=== PATIENT | female | born 1940 | race Caucasian/White ===

== ENCOUNTER 2024-12-03 07:51 | Outpatient (CLI) | payer MEDICARE, SELFPAY ==
--- NOTE | 2024-12-03 09:30 | ECG_ITS ---
Test Date: 2024-12-03 09:55:13 Measurements Intervals [place] Rate: 69 P: 60 ND: 160 QRS: -16 QRSD: 96 T: 88 QT: 367 QTc: 394 Interpretive Statements SINUS RHYTHM NONSPECIFIC ST & T-WAVE ABNORMALITY No previous ECG available for comparison Electronically Signed On 12-03-2024 15:24:44 REMOTE RECRUITER by Munir Erwin M.D.
[2024-12-03 10:43] LABS: Basophils Absolute Auto 0.1 K/mm3 (0.0-0.1); Basophils Percent Auto 1.3 % (0.2-1.2); Eosinophils Absolute Auto 0.6 K/mm3 (0-0.3); Eosinophils Percent Auto 6.3 % (0-4.4); Hematocrit 42.8 % (37.0-47.0); Hemoglobin 14.7 g/dL (12.0-15.0); Immature Granulocyte Absolute 0.02 K/mm3 (0.00-0.031); Immature Granulocyte Percent A 0.2 % (0-0.5); Lymphocytes Absolute Auto 2.74 K/mm3 (0.9-3.2); Lymphocytes Percent Auto 31.4 % (18.3-44.2); Mean Corpuscular HGB Conc 34.3 g/dl (32-36); Mean Corpuscular Hemoglobin 29.3 pg (26-34); Mean Corpuscular Volume 85.3 fl (80-100); Mean Platelet Volume 9.2 fl (7.4-10.4); Monocytes Absolute Auto 0.6 K/mm3 (0.1-0.6); Monocytes Percent Auto 7.2 % (2.6-8.5); Neutrophils Absolute Auto 4.7 K/mm3 (1.3-6.7); Neutrophils Percent Auto 53.6 % (45.5-73.1); Platelet Count Result 273 k/mm3 (150-375); Red Blood Count 5.02 M/mm3 (4.2-5.4); Red Cell Distribution Width 12.4 % (11.5-14.5); White Blood Count 8.7 K/mm3 (4.5-10.0)
[2024-12-03 11:03] LABS: Albumin Level 4.4 g/dL (3.5-5.1); Estimated Glomerular Filt Rate > 60; Glucose 136 mg/dL (65-110)
[2024-12-03 11:56] LABS: MRSA (PCR) NOT DETECTED (NOT DETECTE)
[2024-12-03 12:45] LABS: Urine Cotinine NEGATIVE
[2024-12-03 18:55] LABS: Hemoglobin A1C 6.7 % (<5.7)
== END 2024-12-03 07:52 | disposition home or self-care (01) ==
PROVIDERS: PCP Family Medicine; Visit Provider Orthopaedic Surgery
DX: Z01.818 Encounter for other preprocedural examination (principal); M16.11 Unilateral primary osteoarthritis, right hip
CPT/HCPCS: 80307; 82040; 82565; 82947; 83036; 85025; 87641; 93005

== ENCOUNTER 2024-12-26 00:16 | Day surgery (SDC) | payer MEDICARE, SELFPAY ==
[2024-12-03 08:19] VITALS: BP 152/61; PULSE 70; RESP 16; TEMP 36.7; O2SAT 99; BMI 30.1
--- NOTE | 2024-12-03 08:41 | PC.NURSE ---
Addendum entered by Sandra Capone RN 12/03/24 09:10: HOLD ALL VITAMINS/SUPPLEMENTS 3 DAYS PRE-OP PER ANESTHESIA- LAST DOSE 12/22/24. Original Note: Report to the Outpatient Waiting Room, entrance under the green pavilion located off [facility], at time __8:30AM on date ___12/26/24____. Planned Procedure Time: ___10:30AM .? Time changes happen often and if your time is changed the preop area will call you the afternoon before. - You and your visitor will be asked to self-screen and do not enter if you have any COVID symptoms. Please call surgeon if you need to reschedule. - A mask is optional within the hospital at this time. Patients may have clear liquids (water, carbonated beverages, clear teas, apple juice) until 3 hours prior to surgery with a maximum of 20 ounces. - No food from midnight until time of surgery and no smoking. This includes no chewing gum, candy or mints. Take only the following medications with a SIP of water on the morning of surgery: ____NONE DO NOT STOP ANY OF YOUR OTHER PRESCRIPTION MEDICATIONS PRIOR TO SURGERY EXCEPT THE FOLLOWING Medications to discontinue per physician HOLD NAPROXEN (ALL NSAIDS) 7 DAYS PRE-OP PER DR HAHN Date to take last dose____12/18/24 Please no make-up, nail kazakh, hairspray, perfume, deodorant, or body powder the day of surgery.? No jewelry (including any body piercings) or valuables the day of surgery, leave them at home.? Please take a shower or bath the night before, or the morning of, surgery with an antibacterial soap.? Wear comfortable, loose fitting clothing.? Children are encouraged to wear pajamas. - Jewelry must be removed prior to entering the operating room.? Rings and piercings that are not removed may be cut off. - The hospital will not accept responsibility for valuables.? - Please leave all valuables, including medications, at home the day of surgery. If you are going home after surgery, a licensed school bus driver/teacher assistant must drive you home.? - NO public transportation without another adult if you receive anesthesia. - We recommend that an adult stay with you for 24 hours following discharge. - We also recommend that you do not drive, make important decision, drink alcoholic beverages, or take any drugs that were not prescribed by your health care provider for at least 24 hours after your discharge time. Follow any additional instructions given to you from your surgeon. Telephone instructions given to ____PATIENT & DAUGHTER and asked if any additional questions and then verbalized understanding. Patient advised to call surgeon office or pre surgery nurse liaison [phone] if any additional questions.
[2024-12-26] VITALS (14 sets, daily range): BP systolic 132–195; BP diastolic 66–94; PULSE 75–108; RESP 14–18; TEMP 36.2–37.6; O2SAT 93–100
--- NOTE | ~2024-12-26 | XR_ITS ---
EXAMINATION: XR hip RT min 2V DATE: 12/26/2024 12:49 INDICATION: Postoperative evaluation following right total hip arthroplasty TECHNIQUE: Anteroposterior and lateral views of the right hip were obtained. COMPARISON: 12/23/2024 FINDINGS: Interval placement of a noncemented right total hip arthroplasty which appears well seated in near an atomic alignment. Expected soft tissue gas in the postoperative bed. No fractures identified. IMPRESSION: 1. Right total hip arthroplasty, negative for postoperative purposes. Reviewed, dictated and finalized at location A. ILE DYER
--- OUTSIDE RECORDS SUMMARY | 2024-12-26 00:18 | XMS_ITS | Referral Summary ---
Author Organization [facility] Address [address] [place] [address] Care Team Providers Care Fertilizer Supervisor Name Role Phone Unknown, Notinfile Primary Care Provider Unavail able Encounters Date Type Department Care Team Description 12/24/2024 Telephone [facility] at [place] [address] [facility] [address] [place] [address] Unknown, Notinfile from Last 3 Months Allergies No known active allergies Medications loperamide (IMODIUM A-D) 2 mg tablet Take 2 tablets (4 mg total) by mouth daily Active Lactobacillus acidophilus 10 billion cell capsule Take 1 capsule by mouth daily Active cannabidiol, CBD, (EPIDIOLEX) 100 mg/mL solution Take by mouth 2 (two) times a day Active Active Problems Problem Noted Date Diagnosed Date Chronic diarrhea 04/26/2023 Elevated glucose 04/25/2022 Assessment & Plan (04/25/2022 9:55 AM CDT): Asymptomatic, fasting glucose ordered. Mammogram declined 04/16/2020 Post-menopausal 04/16/2020 Colonoscopy refused 07/30/2018 Resolved Problems Problem Noted Date Diagnosed Date Resolved Date Diarrhea 07/30/2018 04/26/2023 Assessment & Plan (04/25/2022 9:55 AM CDT): Clinically improved with probiotics and Imodium AD. Continue current for [id number] medications. Assessment & Plan (07/30/2018 10:08 AM CDT): Declines referral for colonoscopy or Cologuard. Labs ordered, will follow. High- fiber diet recommended. Will follow. Immunizations Name Administration Dates Next Due Influenza, Quadrivalent, Hig h Dose, Preservative Free, Intrr 09/09/2022,09/14/2021 Influenza, Quadrivalent, Spl it, Preservative Free, Intramuscular 08/23/2016 Influenza, Trivalent, High D ose, Split, Preservative Free, Intramuscular 09/18/2020,08/26/2019,09/11/2018,08/29,09/01/2015 Influenza, Unspecified 08/20/2020,2018,08/19/2018,10/09 Moderna SARS-CoV-2 Monovalen t Vaccination (12+ YRS) 12/30/2020,12/02/2020 Pneumococcal Conjugate PCV 13 09/01/2015, 013 Pneumococcal Polysaccharide PPV23 10/09/2018,02/2011 Tdap 10/09/2018,09/11/2018,05/31/2017 ZOSTER LIVE 04/11/2013 ZOSTER Recombinant 02/06/2019,12/04/2018 Social History Tobacco Use Types Packs/Day Years Used Date Smoking Tobacco: Former Smokeless Tobacco: Never Alcohol Use Standard Drinks/Week Comments Yes 1 (1 standard drink = 0.6 oz pur e alcohol) PHQ-2 Answer Date Recorded PHQ-2 Total Score (If total score is 3 or more points, staff should administer the PHQ-9) 0 04/26/2023 Personal Safety Answer Date Recorded Getting School Help Needed Not on file 11/18 Comments No Sex and Gender Information Value Date Recorded Sex Assigned at Not on file 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 Gender Identity Not on file Sexual Orientation Not on file Last Filed Vital Signs Vital Sign Reading Time Taken Comments Blood Pressure 150/96 04/26/2023 9:36 AM CDT Pulse 72 04/26/2023 9:36 AM CDT Temperature 36.7 C (98 F) 04/26/2023 9:36 AM CDT Respiratory Rate 18 04/26/2023 9:36 AM CDT Oxygen Saturation 97% 04/26/2023 9:36 AM CDT Inhaled Oxygen Concentration - - Weight 63.6 kg (140 lb 3.2 oz) 04/26/2023 9:36 A M CDT Height 148.6 cm (4' 10.5 ) 04/26/2023 9:36 AM CD T Body Mass Index 28.8 04/26/2023 9:36 AM CDT Plan of Treatment Not on file Procedures Procedure Name Priority Date/Time Associated Diagnosis Comments DEXA AXIAL SKELETON BONE DENSITY 1 OR MORE SITES Schedule Routine, Read Routine (OP Routine) 05/06/2021 10:16 AM CDT Other osteoporosis without current pathological fracture from Last 3 Months or Most Recently Relevant to Health Maintenance Results * Dexa Axial Skeleton Bone Density 1 or 2 Site (05/06/2021 10:16 AM CDT) Anatomical Region Laterality Modality Body N/A Other 05/07/2021 8:24 AM CDT Narrative 05/07/2021 8:26 AM CDT EXAM DESCRIPTION: DEXA AXIAL SKELETON BONE DENSITY 1 OR MORE SITES REASON FOR STUDY: 80 y/o year old F with given history of screening. Special Procedure Tech/Model: [employer] SL ([id number]/N [id number]) CLINICAL INFORMATION: Current height: 60 inches Maximum height: 60 inches Weight: 140 pounds Risk factors: Parental history of hip fracture. COMPARISON: None available. FINDINGS: AP LUMBAR SPINE L1-L4: Total BMD is 0.990 g/cm2 T-score is -0.5 LEFT HIP: Total BMD is 0.801 g/cm2 T-score is -1.2 Femoral neck BMD is 0.623 g/cm2 T-score is -2.0 IMPRESSION: 1. AP lumbar spine bone mineral density in the range of normal. 2. Left hip bone mineral density in the range of low bone mass. 3. Left femoral neck bone mineral density in the range of low bone mass. 4. FRAX 10 year major osteoporotic fracture risk is reported as 29% with 10 year hip fracture Risk 18%. REFERENCE: Bone mineral density: Normal (T-score above or = -1.0) Low bone mass (T-score between -1.0 and -2.5) replaces the previously used term osteopenia Osteoporosis (T-score = or below -2.5) Medical evaluation for secondary causes of low bone mineral density may be appropriate. FRAX is a World Health Organization validated fracture risk assessment tool that calculates a person's 10 year probability of a major osteoporosis related fracture and hip fracture. According to the National Osteoporosis Foundation guidelines, postmenopausal women and men age 50 or older with low bone mass and a 10 year probability of a major osteoporosis related fracture = or greater than 20% or a 10 year probability of a hip fracture = or greater than 3% should be considered for treatment. For further information, including treatment recommendations, please refer to the 2013 ISCD Official Positions (http://www.iscd.org) and the NOF's Clinician's Guide to Prevention and Treatment of Osteoporosis (http://www.nof.org/professionals/clinical-guidelines) THIS IS AN ELECTRONICALLY VERIFIED FINAL REPORT 05/07/2021 8:26 AM - Electronically signed by Jose Ahumada M.D. CH: Report ID: [id number] Reading Location: [id number] Procedure Note Jose Ahumada Jr., MD - 05/07/2021 EXAM DESCRIPTION: DEXA AXIAL SKELETON BONE DENSITY 1 OR MORE SITES REASON FOR STUDY: 80 y/o year old F with given history ofscreening. Special Procedure Tech/Model: [employer] Discovery SL ([id number]/N [id number]) CLINICAL INFORMATION: Current height: 60 inches Maximum height: 60 inches Weight: 140 pounds Risk factors: Parental history of hip fracture. COMPARISON: None available. FINDINGS: AP LUMBAR SPINE L1-L4: Total BMD is 0.990 g/cm2 T-score is -0.5 LEFT HIP: Total BMD is 0.801 g/cm2 T-score is -1.2 Femoral neck BMD is 0.623 g/cm2 T-score is -2.0 IMPRESSION: 1. AP lumbar spine bone mineral density in the range of normal. 2. Left hip bone mineral density in the range of low bone mass. 3. Left femoral neck bone mineral density in the range of low bone mass. 4. FRAX 10 year major osteoporotic fracture risk is reported as 29% with10 year hip fracture Risk 18%. REFERENCE: Bone mineral density: Normal (T-score above or = -1.0) Low bone mass (T-score between -1.0 and -2.5) replaces thepreviously used term osteopenia Osteoporosis (T-score = or below -2.5) Medical evaluation for secondary causes of low bone mineral density may be appropriate. FRAX is a World Health Organization validated fracture risk assessmenttool that calculates a person's 10 year probability of a major osteoporosisrelated fracture and hip fracture. According to the National OsteoporosisFoundation guidelines, postmenopausal women and men age 50 or older with low bonemass and a 10 year probability of a major osteoporosis related fracture = or greater than 20% or a 10 year probability of a hip fracture = or greaterthan 3% should be considered for treatment. For further information, including treatment recommendations, please referto the 2013 ISCD Official Positions (http://www.iscd.org) and the NOF's Clinician's Guide to Prevention and Treatment of Osteoporosis (http://www.nof.org/professionals/clinical-guidelines) THIS IS AN ELECTRONICALLY VERIFIED FINAL REPORT 05/07/2021 8:26 AM - Electronically signed by Jose Ahumada M.D. CH: BRIGHT Report ID: [id number] Reading Location: [place] [address] Neelima Davies STERILE PROCESS COORDINATOR IMG DXA PROCEDURES Final Result from Last 3 Months or Most Recently Relevant to Health Maintenance Insurance [facility] MEDICARE SUPPLEMENT INSURANCE MEDICARE MEDICARE [facility] MEDICARE SUPPLEMENT INSURANCE Care Teams Fertilizer Supervisor Relationship Specialty Start Date End Date Unknown, Notinfile PCP - General 09/19/24
--- OUTSIDE RECORDS SUMMARY | 2024-12-26 00:18 | XMS_ITS | Clinical Summary ---
Author Organization [facility] Address [address] [place] [address] Phone Care Team Providers Care Garden Worker Name Role Phone ALEC MORA DO Primary Care Provider Reason for Visit and Chief Complaint CHART UPDATE Plan of Treatment No Plan of Treatment Recorded Assessments Includes: Assessments from this encounter No Assessments Recorded Medical Equipment - Implanted Devices Includes: Current Devices No Medical Equipment Recorded Medications Includes: Medications discussed during this encounter and other current Medications Current Medications (continue as prescribed) Oyraxzqp-Tibpyvlmi-HV 3.5-10 000-1 Otic Solution 04/23/2024 Provider: GUEVARA Pichardo NP-C Diagnosis: as directed 4 drops in affected ear TID Last Documented On 4 5:41PM By Guevara CLOUD-C ; [facility] Medications Administered Includes: Administered Medications from this encounter No Administered Medications Recorded Results Includes: Results discussed during this encounter No Results Recorded For Specified Dates History of Present Illness Includes: History of Present Illness from this encounter No History of Present Illness Recorded Social History No Social History Recorded - Smoking Status Unknown Medical History Includes: Medical History addressed during this encounter No Medical History Recorded Family History Includes: Family History addressed during this encounter No Family History Recorded Review of Systems Includes: Review of Systems from this encounter No Review of Systems Recorded Mental Status Includes: Mental Status from this encounter No Mental Status Recorded Functional Status Includes: Functional Status from this encounter No Functional Status Recorded Physical Exam Includes: Physical Exam from this encounter No Physical Exam Recorded Immunizations Includes: Immunizations addressed during this encounter Vaccine Dose # Date Site Reaction(s) Status Source Tdap (Boostrix) 1 05/31/2017 Left Arm Complete (Re ported) Patient Last Documented On 7 9:16AM ; [facility] Allergies Includes: Active Allergies No Known Allergies Encounters Encounter Provider Location Date Check-In Time Check-Out Time Diagnosis CHART UPDATE KWASI Dudley RICHARD LOMAS 06/01/2017 9:15AM 11:59PM Insurance Includes: Active Insurance Policies Plan Name Member ID Group # Subscriber Relationship Effect bharath Dates 1 - MEDICARE PART A CLAIMS/NGS [id number] KAYCEE A COPE Self 2 - [employer] MEDICARE SUPPLEMENT INS [id number] KAYCEE A COPE Self Clinical Notes Includes: Clinical Notes from this encounter No Clinical Notes Recorded
--- OUTSIDE RECORDS SUMMARY | 2024-12-26 00:18 | XMS_ITS ---
Author Organization [facility] Address [address] [place] [address] Phone Care Team Providers Care Building Services Supervisor Name Role Phone ALEC MORA DO Primary Care Provider Plan of Treatment Findings Encounter Date Ordered return to the clinic if condition worsens or new symptoms arise WALK IN PATIENT - NEW PT with GUEVARA KHAN DNP 04/23/2024 Last Documented On 4 3:35PM ; [facility] Go to the emergency room if condition worsens WALK-IN CLINIC SICK VISIT with HAIM HAGEN [facility]- 03/18/2019 Last Documented On 9 9:31AM ; [facility] Ordered analgesics (non-ster oidal anti-inflammatory agents) WALK-IN CLINIC SICK VISIT with HAIM HAGEN [facility]- 03/18/2019 Last Documented On 9 9:31AM ; [facility] Ordered follow-up visit in 1 day with an office visit with Dr. Miller WALK-IN CLINIC SICK VISIT with HAIM HAGEN [facility]- 03/18/2019 Last Documented On 9 9:31AM ; [facility] Ordered home range of motion exercises W ALK-IN CLINIC SICK VISIT with HAIM BAHENAP- 03/18/2019 Last Documented On 9 9:31AM ; [facility] Ordered moist heat alternating ice WALK- IN CLINIC SICK VISIT with HAIM HAGEN [facility]- 03/18/2019 Last Documented On 9 9:31AM ; [facility] Ordered referred to primary care physician WALK-IN CLINIC SICK VISIT with HAIM HAGEN [facility] 03/18/2019 Last Documented On 9 9:31AM ; [facility] Ordered return to the clinic if condition worsens or new symptoms arise WALK-IN CLINIC SICK VISIT with HAIM HAGEN [facility] 03/18/2019 Last Documented On 9 9:31AM ; [facility] Ordered Transition in care, clinical summary provided WALK-IN CLINIC SICK VISIT with HAIM HAGEN [facility] 03/18/2019 Last Documented On 9 9:31AM ; [facility] Pt to use prescription as or dered. Purpose of and use of medication discussed. WALK-IN CLINIC SICK VISIT with EVA Laith FERRERA [facility] 08/18/2018 Last Documented On 8 12:00PM ; [facility] exercises as demonstrated, t ylenol or ibuprofen, ice, steroid injection today PROBLEM VISIT with KWASI RAMOS 09/02/2013 Last Documented On 3 7:47PM ; [facility] Ordered patient to call if ruddy michaels develops PROBLEM VISIT with KWASI RAMOS 09/02/2013 Last Documented On 3 7:47PM ; [facility] Ordered return to the clinic if condition worsens or new symptoms arise PROBLEM VISIT with KWASI RAMOS DO 09/02/2013 Last Documented On 3 7:47PM ; [facility] Instructions to patient Go to the emergency room if condition worsens Last Documented On 9 9:30AM ; [facility] Watch for signs/symptoms of infection, return to the clinic if seen Last Documented On 9 9:30AM ; [facility] Go to the emergency room if condition worsens Last Documented On 3 10:53AM ; [facility] Assessments Includes: Assessments for all patient encounters Findings Encounter Date Cerumen impaction in the right ear WALK IN PATIENT - NEW PT with GUEVARA KHAN DNP 04/23/2024 Last Documented On 4 3:35PM ; [facility] Otitis externa WALK IN PATIENT - NEW PT with KARYN KHAN DNP 04/23/2024 Last Documented On 4 3:35PM ; [facility] Acute pansinusitis WALK-IN CLINIC SICK VISIT with EVA CLOUD-ANJELICA 08/18/2018 Last Documented On 8 12:00PM ; [facility] Arthralgia PROBLEM VISIT with KWASI HYMAN FF DO 09/02/2013 Last Documented On 3 7:47PM ; [facility] Skin Tag OFFICE SURGERY with KWASI LESTERBRIGHT EFF DO 06/12/2009 Last Documented On 9 11:30AM ; [facility] Instructions Includes: Instructions for all patient encounters Instructions to patient Go to the emergency room if condition worsens Last Documented On 9 9:30AM ; [facility] Watch for signs/symptoms of infection, return to the clinic if seen Last Documented On 9 9:30AM ; [facility] Go to the emergency room if condition worsens Last Documented On 3 10:53AM ; [facility] Medical Equipment - Implanted Devices Includes: Current and historical Devices No Medical Equipment Recorded Medications Includes: Current and historical Medications Current Medications (continue as prescribed) Uhkugxzf-Ohypwqjjg-OJ 3.5-10 000-1 Otic Solution 04/23/2024 Provider: GUEVARA Pichardo RAM PRESS OPERATOR-C Diagnosis: as directed 4 drops in affected ear TID Last Documented On 4 5:41PM By Guevara MANN ; [facility] Past Medications on file Ciprofloxacin-dexAMETHasone 0.3-0.1% Otic Suspension 04/23/2024 - 04/30/2024 Provider: GUEVARA KHAN DNP Diagnosis: Unspecified otit is externa, right ear Apply 5 drops to the right ear BID for 7 days Last Documented On 4 3:03PM By Guevara Khan DNP ; [facility] Cephalexin 500MG Oral Capsule 08/18/2018 - 08/28/2018 Provider: EVA CLOUD-ANJELICA Diagnosis: Acute pansinusit is, unspecified 1 CAPSULE TWO TIMES A DAY Last Documented On 8 11:51AM By EVA FERRERA CHEMISTS-BC ; [facility] Medications Administered Includes: Administered Medications in patient's chart Medications Administered Diagnosis Date Pro vider influenza vaccine IM INJ 08/23/2016 ZAYRA N L PALCHEFF DO Last Documented On 6 3:52PM By BOGDAN ZIMMERMAN [facility] ; [facility] Vital Signs Includes: Vital Signs from 12/26/2023 through 12/26/2024 Vital Name 04/23/2024 02:08P Pulse Rate-Sitting (bpm) 86 Temp-Oral (F) 98.1 Height (in) 58.25 Weight (lb) 141 Body Mass Index 29.2 Body Surface Area 1.6 Oxygen Saturation (%) 98 Last Documented: On 04/23/2024 2:08PM ; [facility] Results Includes: Results from 12/26/2023 through 12/26/2024 No Results Recorded For Specified Dates History of Present Illness History of Present Illness not supported for this document type No History of Present Illness Recorded Social History Description Last Updated Former smoker 04/23/2024 Last Documented On 4 3:35PM ; [facility] Not a current smoker 08/18/2018 Last Documented On 8 12:00PM ; [facility] Not using alcohol 08/18/2018 Last Documented On 8 12:00PM ; [facility] Not using drugs 08/18/2018 Last Documented On 8 12:00PM ; [facility] Smoking status : Never smoked 09/02/2013 Last Documented On 3 7:47PM ; [facility] Procedures and Surgical History Includes: Procedures from 12/26/2023 through 12/26/2024 Procedures Code Diagnosis Performing Provider Service Location Service Date REMOVE IMPACTED EAR CERUM 56424 Impacted cerumen, right ear GUEVARA KHAN DNP [facility] 04/23/2024 Last Documented On 4 9:59AM ; [facility] Surgical History Last Updated Surgical / procedural history bilat cat aract surgery 08/18/2018 Last Documented On 8 12:00PM ; [facility] Medical History Includes: Medical History in patient's chart Description Last Updated Denial of any significant medical histor y 08/18/2018 Last Documented On 8 12:00PM ; [facility] Family History Includes: Family History in patient's chart Description Last Updated Family medical history was unknown 08/18 Last Documented On 8 12:00PM ; [facility] Review of Systems Review of Systems not supported for this document type No Review of Systems Recorded Mental Status No Mental Status Recorded Functional Status No Functional Status Recorded Physical Exam Physical Exam not supported for this document type No Physical Exam Recorded Immunizations Includes: Immunizations in patient's chart Vaccine Dose # Date Site Reaction(s) Status Source Influenza (Quadrivalent)36 mo.& older PF 0.5ml (SD) 1 08/23/2016 Complete (Reported) Patient Last Documented On 6 3:51PM ; [facility] Tdap (Boostrix) 1 05/31/2017 Left Arm Complete (Re ported) Patient Last Documented On 7 9:16AM ; [facility] Allergies Includes: Active, inactive, and resolved Allergies No Known Allergies Encounters Includes: Encounters from 12/26/2023 through 12/26/2024 Encounter Provider Location Date Check-In Time Check-Out Time Diagnosis * PHONE CALL GUEVARA MANN 04/23/20 24 5:29PM 11:59PM WALK IN PATIENT - NEW PT GUEVARA KHAN DNP [facility] 04/23/20 24 2:02PM 2:52PM Otitis Externa,Cerum en Impaction - Right Ear Insurance Includes: Active Insurance Policies Plan Name Member ID Group # Subscriber Relationship Effect bharath Dates 1 - MEDICARE PART A CLAIMS/NGS [id number] KAYCEE A COPE Self 2 - [employer] MEDICARE SUPPLEMENT INS [id number] KAYCEE A COPE Self Clinical Notes Includes: Signed Clinical Notes starting from 12/09/2022 * Progress note Date Encounter Last Documented by 04/23/2024 * PHONE CALL Last documented on 04/23/2024; 5:29 PM, GUEVARA MANN; [facility] History of Present Illness ciprodex not cover and requesting new med Plan StartCited - Other Djzpwwmo-Dvlrvqzue-TT 3.5-53405-6 mL as directed 4 drops in affected ear TID, 10 days, 0 refills EndCited * Progress note Date Encounter Last Documented by 04/23/2024 WALK IN PATIENT - NEW PT Last do cumented on 04/23/2024; 3:35 PM, GUEVARA KHAN DNP; [facility] Chief Complaint The Chief Complaint is: Pt is here with her right ear clogged up, started a week ago. History of Present Illness KAYCEE SUN is an 83 year old female. - Allergy list reviewed - Medication list reviewed - Feeling tired - No fever - No chills - No sinus pain - No eye symptoms - Hearing loss right ear only - No earache in right ear - Not in left ear - The right ear does not feel pressured - Not on the left - No nasal discharge - No nasal passage blockage (stuffiness) - No sore throat - No chest pain or discomfort - No dyspnea - No cough Kaycee presents to the clinic with right ear hearing loss/feeling clogged up for the past week now. She denies any ear pain, fever, chills, or other associated symptoms. She reports that she took a Qtip with warm water and tried to clean her ear out but was unsuccessful at home. Social History Tobacco use: Former smoker. Review Of Systems Systemic: No fever and no chills. Head: No sinus pain. Eyes: No eye pain. Otolaryngeal: Hearing loss right side only. No earache, no nasal discharge, and no sore throat. Cardiovascular: No chest pain or discomfort. Pulmonary: No dyspnea and no cough. Physical Findings - Vitals taken 04/23/2024 02:08 pm Pulse Rate-Sitting 86 bpm Temp-Oral 98.1 F Height 58.25 in Weight 141 lbs Body Mass Index 29.2 kg/m2 Body Surface Area 1.6 m2 Oxygen Saturation 98 % General Appearance: - Awake. - Alert. - Well nourished. Eyes: General/bilateral: Pupils: - PERRLA. Ears: Right Ear: External Auditory Canal: - Examined. - Ceruminous discharge occluding the canal. - Wall epithelium reddened. - Wall tender. Left Ear: External Auditory Canal: - Normal. Tympanic Membrane: - Normal. - No bulging tympanic membrane. - Not erythematous. Nose: General/bilateral: Discharge: - No nasal discharge. Cavity: - Nasal turbinate not hypertrophied. Sinus Tenderness: - No sinus tenderness. Pharynx: Oropharynx: - Tonsils showed no abnormalities. - Not inflamed. Lungs: - Clear to auscultation. Cardiovascular: Heart Rate And Rhythm: - Normal. Skin: - Mucous membranes were not dry. Assessment - [H61.21 - Impacted cerumen, right ear] Cerumen impaction in the right ear - [H60.91 - Unspecified otitis externa, right ear] Otitis externa Therapy - Clinical summary provided to patient. Plan StartCited - Impacted cerumen, right ear In office procedures/*Family Practice: Cerumen (Ear Wax) Removal EndCited StartCited - Unspecified otitis externa, right ear Ciprofloxacin-dexAMETHasone 0.3-0.1% mL Apply 5 drops to the right ear BID for 7 days, 7 days, 0 refills EndCited - Return to the clinic if condition worsens or new symptoms arise Attempted to irrigate right ear to remove cerumen. Was unable to successfully remove all before patient became intolerant. Use OTC Debrox ear drops- instill 2 drops to each ear 3 times a week for 2 weeks and then get ear reevaluated for wax buildup. Ciprodex drops as directed. 1. Get plenty of rest. 2. May use OTC antihistamine (Zyrtec, Claritin, Benadryl) to help dry up fluid behind the eardrum. 3. Flonase nasal spray may also help to open up nasal passages to help promote better flow of secretions through the sinus cavity. 4. Use a humidifier at night to help prevent nasal congestion. 5. May use OTC Tylenol/ibuprofen for fevers or pain. 6. Patient voiced understanding of teaching. Practice Management Use of tobacco assessment performed Review of medications documented.
--- OUTSIDE RECORDS SUMMARY | 2024-12-26 00:18 | XMS_ITS | Clinical Summary ---
Author Organization [facility] Address [address] [place] [address] Care Team Providers Care Sign Builder Supervisor Name Role Phone Unknown, Notinfile Primary Care Provider Unavail able Allergies No known active allergies Medications loperamide [...] probiotics and Imodium AD. Continue current for qduc-mea-kgnydlu medications. Assessment & Plan (07/30/2018 10:08 AM CDT): Declines referral for colonoscopy or Cologuard. Labs ordered, will follow. High- fiber diet recommended. Will follow. Encounters Date Type Department Care Team Description 12/24/2024 Telephone [facility] [place] [address] [place] [address] Unknown, Notinfile from Last 3 Months Immunizations Name Administration Dates Next Due Influenza, Quadrivalent, Hig h Dose, Preservative Free, Intrr 09/09/2022,09/14/2021 Influenza, Quadrivalent, Spl it, Preservative Free, Intramuscular 08/23/2016 Influenza, Trivalent, High D ose, Split, Preservative Free, Intramuscular 09/18/2020,08/26/2019,09/11/2018,08/29,09/01/2015 Influenza, Unspecified 08/20/2020,2018,08/19/2018,10/09 Moderna SARS-CoV-2 Monovalen t Vaccination (12+ YRS) 12/30/2020,12/02/2020 Pneumococcal Conjugate PCV 13 09/01/2015, 013 Pneumococcal Polysaccharide PPV23 10/09/2018,02/2011 Tdap 10/09/2018,09/11/2018,05/31/2017 ZOSTER LIVE 04/11/2013 ZOSTER Recombinant 02/06/2019,12/04/2018 Medical History Medical History Date Comments Cataract Social History Tobacco Use Types Packs/Day Years [...] on file 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 Gender Identity Not on file Sexual Orientation Not on file Obstetrics History Last Filed Vital Signs Vital Sign Reading [...] 04/26/2023 9:36 AM CDT Plan of Treatment Health Maintenance Due Date Last Done Comments Hepatitis B Screening 1958 Osteoporosis Screening-Bone Density Scan 05/06/2023 05/06/2021 Depression Screening 04/26/2024 04/26/2023, 04/25/2022, 04/23/2021, Additional history exists Fall Risk Assessment 04/26/2024 04/26/2023, 04/25/2022, 04/23/2021, Additional history exists Well Visit 65+ 04/26/2024 04/26/2023, 04/2022, 04/23/2021, Additional history exists Covid-19 Vaccine (2023-2 5 season) 2024 08/09/2022, 04/05/2022, 07/20/2021, Additional history exists Influenza Vaccine (#1) 2024 , 09/14/2021, 09/18/2020, Additional history exists DTaP/Tdap/Td Vaccine (4 - Td or Tdap) 10/09/2028 10/09/2018, 09/11/2018, 05/31/2017 Pneumococcal vaccine 65+ Completed 018, 09/01/2015, 05/09/2013, Additional history exists Zoster Vaccine Completed 02/06/2019, 11/20, 04/11/2013 Procedures Procedure Name Priority Date/Time Associated Diagnosis [...] old F with given history of screening. Conference Director/Model: [employer] Discovery SL (S/N [id number]) CLINICAL INFORMATION: Current height: 60 inches Maximum [...] Electronically signed by Jose Ahumada M.D. CH: CH Report ID: [id number] Reading Location: [id number] Procedure Note Jose Ahumada Jr., MD - 05/07/2021 EXAM DESCRIPTION: DEXA AXIAL SKELETON BONE DENSITY 1 OR MORE SITES REASON FOR STUDY: 80 y/o year old F with given history ofscreening. Conference Director/Model: [employer] (S/N [id number]) CLINICAL INFORMATION: Current height: 60 inches Maximum [...] Jose Ahumada M.D. CH: BRIGHT Report ID: [id number] Reading Location: [place] [id number] Neelima Davies NP IMG DXA PROCEDURES Final Result from Last 3 Months or Most Recently Relevant to Health Maintenance Insurance [facility] MEDICARE SUPPLEMENT INSURANCE [place] [address] [facility] MEDICARE SUPPLEMENT INSURANCE Care Teams Sign Builder Supervisor Relationship Specialty Start Date End Date Unknown, Notinfile PCP - General 09/19/24
--- OUTSIDE RECORDS SUMMARY | 2024-12-26 00:18 | XMS_ITS | Clinical Summary ---
Author Organization [facility] Address [address] [place] [address] Phone Care Team Providers Care Pipe Straightener Name Role Phone ALEC MORA DO Primary Care Provider Reason for Visit and Chief Complaint * PHONE CALL Plan of Treatment No Plan of Treatment Recorded Assessments Includes: Assessments from this encounter No Assessments Recorded Medical Equipment - Implanted Devices Includes: Current Devices No Medical Equipment Recorded Medications Includes: Medications discussed during this encounter and other current Medications New / Renewed during this visit GUEVARA MANN on 04/23/2024 Qbgclbfa-Bwayqjotv-EZ 3.5-10 000-1 Otic Solution Provider: GUEVARA MANN 10 day supply: 1 mL, 0 refills Diagnosis: as directed 4 drops in affected ear TID [facility], [id number] - Last Documented On 4 5:41PM By Guevara MANN ; [facility] Medications Administered Includes: Administered Medications from this encounter No Administered Medications Recorded Results Includes: Results discussed during this encounter No Results Recorded For Specified Dates History of Present Illness Includes: History of Present Illness from this encounter HPI ciprodex not cover and requesting new med Social History No Social History Recorded - [...] from this encounter No Physical Exam Recorded Allergies Includes: Active Allergies No Known Allergies Encounters Encounter Provider Location Date Check-In Time Check-Out Time Diagnosis * PHONE CALL GUEVARA MANN 04/23/2024 5:29PM 11:59PM Insurance Includes: Active Insurance Policies Plan Name Member ID Group # Subscriber Relationship Effect bharath Dates 1 - MEDICARE PART A CLAIMS/NGS [id number] KAYCEE A COPE Self 2 - [employer] MEDICARE SUPPLEMENT INS [id number] KAYCEE A COPE Self Clinical Notes Includes: Clinical Notes from this encounter * Progress note Date Encounter Last Documented by 04/23/2024 * PHONE CALL Last documented on 04/23/2024; 5:29 PM, GUEVARA MANN; [facility] History of Present Illness ciprodex not cover and requesting new med Plan StartCited - Other Bqpmyrhc-Yolgnhemt-YB 3.5-86487-6 mL as directed 4 drops in affected ear TID, 10 days, 0 refills EndCited
--- OUTSIDE RECORDS SUMMARY | 2024-12-26 00:18 | XMS_ITS ---
Care Plan - [facility] Created on: December 26, 2024 KAYCEE SUN : 1940 Sex: Female Author Organization [facility] Address [address] [place] [address] Phone Care Team Providers Care Bowstring Maker Name Role Phone ALEC MORA DO Primary Care Provider
--- OUTSIDE RECORDS SUMMARY | 2024-12-26 00:18 | XMS_ITS | Clinical Summary ---
Author Organization [facility] Address [address] [place] [address] Phone Care Team Providers Care Cylinder Tester Name Role Phone ALEC MORA DO Primary Care Provider Reason for Visit and Chief Complaint The Chief Complaint is: pt is here with her right ear clogged up, started a week ago Plan of Treatment - Return to the clinic if condition worsens or new symptoms arise - Last Documented On 04/23/2024 3:35PM ; [facility] Attempted to irrigate right ear to remove [...] pain. 6. Patient voiced understanding of teaching. - Last Documented On 04/23/2024 3:35PM ; [facility] Pending Tests Order Diagnosis Results Due Ordering Justice manriquez In office procedures - *Family Practice Cerumen (Ear Wax) Removal Impacted cerumen, right ear 05/07/24 GUEVARA KHAN DNP Last Documented On 3:35PM ; [facility] Assessments Includes: Assessments from this encounter Findings - [H61.21 - Impacted cerumen, right ear] Cerumen impaction in the right ear - Last Documented On 04/23/2024 3:35PM ; [facility] - [H60.91 - Unspecified otitis externa, right ear] Otitis externa - Last Documented On 04/23/2024 3:35PM ; [facility] Medical Equipment - Implanted Devices Includes: Current Devices No Medical Equipment Recorded Medications Includes: Medications discussed during this encounter and other current Medications New / Renewed during this visit GUEVARA KHAN DNP on 04/23/2024 Ciprofloxacin-dexAMETHasone 0.3-0.1% Otic Suspension Provider: GUEVARA KHAN DNP 7 day supply: 7.5 mL, 0 refills Diagnosis: Unspecified otitis externa, right ear Apply 5 drops to the right ear BID for 7 days P harmacy: [facility] - [address] [place] [address], [id number] - Last Documented On 4 3:03PM By Guevara Khan DNP ; [facility] Current Medications (continue as prescribed) Jbfjmyta-Plsaxjlvy-XI 3.5-10 000-1 Otic Solution 04/23/2024 Provider: GUEVARA Pichardo MEDICATION COORDINATOR-C Diagnosis: as directed 4 drops in affected ear TID Last Documented On 4 5:41PM By Guevara BAHENAP-C ; [facility] Medications Administered Includes: Administered Medications from this encounter No Administered Medications Recorded Vital Signs Includes: Vital Signs from this encounter Vital Name 04/23/2024 02:08P Pulse Rate-Sitting (bpm) 86 Temp-Oral (F) 98.1 Height (in) 58.25 Weight (lb) 141 Body Mass Index 29.2 Body Surface Area 1.6 Oxygen Saturation (%) 98 Last Documented: On 04/23/2024 2:08PM ; [facility] Results Includes: Results discussed during this encounter No Results Recorded For Specified Dates History of Present Illness Includes: History of Present Illness from this encounter TRCAY SUN is an 83 year old female. [...] but was unsuccessful at home. Social History Description Last Updated Former smoker 04/23/2024 Last Documented On 4 3:35PM ; [facility] Smoking Status Unknown Procedures and Surgical History Includes: Procedures from this encounter Procedures Code Diagnosis Performing Provider Service Location Service Date REMOVE IMPACTED EAR CERUM 78044 Impacted cerumen, right ear GUEVARA KHAN DNP [facility] 04/23/2024 Last Documented On 4 9:59AM ; [facility] use of tobacco assessment performed 1000F Last Documented On 4 2:52PM ; [facility] review of medications documented 1160F Last Documented On 4 2:08PM ; [facility] Clinical summary provided to patient Last Documented On 4 2:52PM ; [facility] Medical History Includes: Medical History addressed during this encounter No Medical History Recorded Family History Includes: Family History addressed during this encounter No Family History Recorded Review of Systems Includes: Review of Systems from this encounter Systemic: No fever and no chills. Head: No sinus pain. Eyes: No eye pain. Otolaryngeal: Hearing loss right side only. No earache, no nasal discharge, and no sore throat. Cardiovascular: No chest pain or discomfort. Pulmonary: No dyspnea and no cough. Mental Status Includes: Mental Status from this encounter No Mental Status Recorded Functional Status Includes: Functional Status from this encounter No Functional Status Recorded Physical Exam Includes: Physical Exam from this encounter Allergies Includes: Active Allergies No Known Allergies Encounters Encounter Provider Location Date Check-In Time Check-Out Time Diagnosis WALK IN PATIENT - NEW PT GUEVARA KHAN DNP [facility] 04/23/20 24 2:02PM 2:52PM Otitis Externa,Cerum en Impaction - Right Ear Insurance Includes: Active Insurance Policies Plan Name Member ID Group # Subscriber Relationship Effect bharath Dates 1 - MEDICARE PART A CLAIMS/NGS [id number] KAYCEE SUN Self 2 - [employer] MEDICARE SUPPLEMENT INS [id number] KAYCEE SUN Self Clinical Notes Includes: Clinical Notes from this encounter * Progress note Date Encounter Last Documented by 04/23/2024 WALK IN PATIENT - NEW PT Last do cumented on 04/23/2024; 3:35 PM, GUEVARA KHAN DNP; [facility] Chief Complaint The Chief Complaint [...]
--- OUTSIDE RECORDS SUMMARY | 2024-12-26 00:18 | XMS_ITS | Clinical Summary ---
Author Organization [facility] Address [address] [place] [address] Phone Care Team Providers Care Cosmetic Maker Name Role Phone ALEC MROA DO Primary Care Provider Reason for Visit and Chief Complaint The Chief Complaint is: cough & congestion one week ago Plan of Treatment Pt to use prescription as ordered. Purpose of and use of medication discussed. . - Last Documented On 08/18/2018 12:00PM ; [facility] Assessments Includes: Assessments from this encounter Findings - Acute pansinusitis - Last Documented On 08/18/2018 12:00PM ; [facility] Medical Equipment - Implanted Devices Includes: Current Devices No Medical Equipment Recorded Medications Includes: Medications discussed during this encounter and other current Medications New / Renewed during this visit EVA CLOUD-ANJELICA on 08/18/2018 Cephalexin 500MG Oral Capsule Provider: EVA PETTIT 10 day supply: 20 capsule, 0 refills Diagnosis: Acute pansinusitis, unspecified 1 CAPSULE TWO TIMES A DAY Pharmacy: [facility] - [address] [place] [address], [id number] - Last Documented On 8 11:51AM By EVA CLOUD-ANJELICA ; [facility] Current Medications (continue as prescribed) Koppospj-Iccysslyz-QN 3.5-10 000-1 Otic Solution 04/23/2024 Provider: GUEVARA Pichardo NP-C Diagnosis: as directed 4 drops in affected ear TID Last Documented On 4 5:41PM By Guevara MANN ; [facility] Past Medications on file Ciprofloxacin-dexAMETHasone 0.3-0.1% Otic Suspension 04/23/2024 - 04/30/2024 Provider: GUEVARA KHAN DNP Diagnosis: Unspecified otit is externa, right ear Apply 5 drops to the right ear BID for 7 days Last Documented On 4 3:03PM By Guevara Khan DNP ; [facility] Medications Administered Includes: Administered Medications from this encounter No Administered Medications Recorded Vital Signs Includes: Vital Signs from this encounter Vital Name 08/18/2018 11:41A Blood Pressure Sitting R 138/66 BP Cuff Size Regular Pulse Rate-Sitting (bpm) 85 Pulse Rhythm Regular Temp-Oral (F) 98.4 Height (in) 60 Weight (lb) 139.2 Body Mass Index (kg/m2) 27.2 Body Surface Area (m2) 1.6 Oxygen Saturation (%) 95 Last Documented: On 08/18/2018 11:43A M ; [facility] Results Includes: Results discussed during this encounter No Results Recorded For Specified Dates History of Present Illness Includes: History of Present Illness from this encounter TRACY SUN is a 77 year old female. - Medication list reviewed. - No vertigo. Symptoms x one week. Has been taking dayquil, nyquil, and sudafed. Has nasal congestion, nasal discharge, post nasal drip. No sore throat. Has cough. No wheezing or SOB. No chest congestion. First few days of symptoms had chills and sweats. Has some intermittent body aches. just feels like she is not getting better. Doesn't feel like symptoms are worsening. Social History Description Last Updated Not a current smoker 08/18/2018 Last Documented On 8 12:00PM ; [facility] Not using alcohol 08/18/2018 Last Documented On 8 12:00PM ; [facility] Not using drugs 08/18/2018 Last Documented On 8 12:00PM ; [facility] Smoking status : Never smoked 09/02/2013 Last Documented On 8 11:41AM ; [facility] Procedures and Surgical History Includes: Procedures from this encounter Procedures Code Diagnosis Performing Provider Service Location Service Date the options include antihistamines as needed per product instructions. Benadryl at night time. Zyrtec (cetirizine), claritin (loratidine) or Veronique (fexofenadine) once daily, in morning Last Documented On 8 11:50AM ; [facility] Pt to use OTC fever/pain product as need ed per product instruction.~ Last Documented On 8 11:50AM ; [facility] plan of care reviewed and agreed to by t he patient Last Documented On 8 11:50AM ; [facility] patient to call if symptoms worsen or not improved in 5-7 days to update patient's status Last Documented On 8 11:50AM ; [facility] patient screened for future fall risk [id number] Last Documented On 8 12:00PM ; [facility] Clinical summary provided to patient Last Documented On 8 11:50AM ; [facility] Surgical History Last Updated Surgical / procedural history bilat edel ract surgery 08/18/2018 Last Documented On 8 12:00PM ; [facility] Medical History Includes: Medical History addressed during this encounter Description Last Updated Denial of any significant medical histor y 08/18/2018 Last Documented On 8 12:00PM ; [facility] Family History Includes: Family History addressed during this encounter Description Last Updated Family medical history was unknown 08/18 Last Documented On 8 12:00PM ; [facility] Review of Systems Includes: Review of Systems from this encounter Systemic: Feeling ill and feeling tired or poorly. No fever. Head: Headache and bilateral maxillary sinus pressure. Neck: No neck symptoms. Eyes: No eye symptoms, no irritation of the eyes, and no discharge from the eyes. Otolaryngeal: Otolaryngeal symptoms. No earache. Nasal discharge, postnasal drip, and nasal passage blockage (stuffiness). No sneezing and no sore throat. Pulmonary: Pulmonary symptoms. No dyspnea and no paroxysmal nocturnal dyspnea. Cough. No wheezing. Gastrointestinal: No gastrointestinal symptoms. Musculoskeletal: Myalgias. Neurological: No dizziness, no recent falls, and no difficulty walking. Skin: No skin lesions. Mental Status Includes: Mental Status from this encounter No Mental Status Recorded Functional Status Includes: Functional Status from this encounter No Functional Status Recorded Physical Exam Includes: Physical Exam from this encounter Allergies Includes: Active Allergies No Known Allergies Encounters Encounter Provider Location Date Check-In Time Check-Out Time Diagnosis WALK-IN CLINIC SICK VISIT EVA FERRERA [facility] 08/18/20 18 11:30AM 12:00PM Acute Pansinusitis Insurance Includes: Active Insurance Policies Plan Name Member ID Group # Subscriber Relationship Effect bharath Dates 1 - MEDICARE PART A CLAIMS/NGS [id number] KAYCEE Ozuna COPE Self 2 - [employer] MEDICARE SUPPLEMENT INS [id number] KAYCEE Ozuna COPE Self Clinical Notes Includes: Clinical Notes from this encounter No Clinical Notes Recorded
--- OUTSIDE RECORDS SUMMARY | 2024-12-26 00:19 | XMS_ITS | Encounter Summary ---
Author Organization [facility] Address [address] [place] [address] Care Team Providers Care Rabbet Operator Name Role Phone Monica Roland DO Primary Care Provider [phone] Unknown, Notinfile Primary Care Provider Unavail able Reason for Visit * Reason Onset Date Comments Scheduling Appointments 05/05/2021 appt rem geno, no answer Encounter Details Date Type Department Care Team (Late st Contact Info) Description 05/05/2021 Telephone [facility] [address] [place] [address] Holly Lang RT Scheduling Appointments (appt reminder, no answer) Social History Tobacco Use Types Packs/Day Years Used Date Smoking Tobacco: Former Smokeless Tobacco: Never Alcohol Use Standard Drinks/Week Comments Yes 1 (1 standard drink = 0.6 oz pur e alcohol) PHQ-2 Answer Date Recorded PHQ-2 Total Score (If total score is 3 or more points, staff should administer the PHQ-9) 0 04/23/2021 Comments Unknown Sex and Gender Information Value Date Recorded Sex Assigned at Not on file Legal Sex Female 1:18 AM [employer] Gender Identity Not on file Sexual Orientation Not on file documented as of this encounter Plan of Treatment Not on file documented as of this encounter Visit Diagnoses Not on filedocumented in this encounter Care Teams Rabbet Operator Relationship Specialty Start Date End Date Monica Roland DO PCP - General 07/30/18 08/28/24 Unknown, Notinfile PCP - General 09/19/24 documented as of this encounter
--- OUTSIDE RECORDS SUMMARY | 2024-12-26 00:19 | XMS_ITS | Clinical Summary ---
Author Organization [facility] Address [address] [place] [address] Phone Care Team Providers Care Blanket Washer Name Role Phone ALEC MORA DO Pablo Primary Care Provider Reason for Visit and Chief Complaint The Chief Complaint is: FELL DOWN 03/18/19 RT LITTLE FINGER HURTS Plan of Treatment - Return to the clinic if condition worsens or new symptoms arise - Last Documented On 03/19/2019 9:31AM ; [facility] - Go to the emergency room if condition worsens - Last Documented On 03/19/2019 9:31AM ; [facility] - Analgesics (non-steroidal anti-inflammatory agents) - Last Documented On 03/19/2019 9:31AM ; [facility] - Moist heat alternating ice - Last Documented On 03/19/2019 9:31AM ; [facility] - Home range of motion exercises - Last Documented On 03/19/2019 9:31AM ; [facility] - Referred to primary care physician - Last Documented On 03/19/2019 9:31AM ; [facility] - Follow-up visit in 1 day with an office visit with Dr. Miller - Last Documented On 03/19/2019 9:31AM ; [facility] - Transition in care, clinical summary provided - Last Documented On 03/19/2019 9:31AM ; [facility] Instructions to patient Go to the emergency room if condition worsens Last Documented On 9 9:30AM ; [facility] Watch for signs/symptoms of infection, return to the clinic if seen Last Documented On 9 9:30AM ; [facility] Assessments Includes: Assessments from this encounter No Assessments Recorded Instructions Includes: Instructions from this encounter Instructions to patient Go to the emergency room if condition worsens Last Documented On 9 9:30AM ; [facility] Watch for signs/symptoms of infection, return to the clinic if seen Last Documented On 9 9:30AM ; [facility] Medical Equipment - Implanted Devices Includes: Current Devices No Medical Equipment Recorded Medications Includes: Medications discussed during this encounter and other current Medications Current Medications (continue as prescribed) Wzhcemiw-Xdayqnfxa-QO 3.5-10 000-1 Otic Solution 04/23/2024 Provider: GUEVARA Pichardo NP-C Diagnosis: as directed 4 drops in affected ear TID Last Documented On 4 5:41PM By Guevara MANN ; [facility] Past Medications on file Ciprofloxacin-dexAMETHasone 0.3-0.1% Otic Suspension 04/23/2024 - 04/30/2024 Provider: GUEVARA KHAN DNP Diagnosis: Unspecified otit is externa, right ear Apply 5 drops to the right ear BID for 7 days Last Documented On 4 3:03PM By Guevara Khan DNP ; [facility] Cephalexin 500MG Oral Capsule 08/18/2018 - 08/28/2018 Provider: EVA PETTIT Diagnosis: Acute pansinusit is, unspecified 1 CAPSULE TWO TIMES A DAY Last Documented On 8 11:51AM By EVA PETTIT ; [facility] Medications Administered Includes: Administered Medications from this encounter No Administered Medications Recorded Vital Signs Includes: Vital Signs from this encounter Vital Name 03/18/2019 12:10P Blood Pressure Sitting R 134/70 BP Cuff Size Regular Pulse Rate-Sitting (bpm) 80 Pulse Rhythm Regular Temp-Oral (F) 98.2 Height (in) 60 Weight (lb) 140 Body Mass Index (kg/m2) 27.3 Body Surface Area (m2) 1.6 Oxygen Saturation (%) 96 Last Documented: On 03/18/2019 12:12P M ; [facility] Results Includes: Results discussed during this encounter No Results Recorded For Specified Dates History of Present Illness Includes: History of Present Illness from this encounter HPI KAYCEE SUN is a 78 year old female. preliminary background HPI [use for free text]. - Medication list reviewed. 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[employer] and she was walking out to her car and she tripped in the parking lot and felt a crunch in her right hand it happened about an hour ago Social History No Social History Recorded - Smoking Status Unknown Procedures and Surgical History Includes: Procedures from this encounter Procedures Code Diagnosis Performing Provider Service L ocation Service Date the options include close observation Last Documented On 9 9:30AM ; [facility] watch for signs/symptoms of infection, r eturn to the clinic if seen Last Documented On 9 9:30AM ; [facility] Clinical summary provided to patient Last Documented On 9 9:25AM ; [facility] Clinical summary transmitted to [facility] provider electronically Last Documented On 9 9:25AM ; [facility] Surgical History Last Updated Surgical / procedural history bilat edel ract surgery 08/18/2018 Last Documented On 9 12:10PM ; [facility] Medical History Includes: Medical History addressed during this encounter Description Last Updated Denial of any significant medical histor y 08/18/2018 Last Documented On 9 12:10PM ; [facility] Family History Includes: Family History addressed during this encounter No Family History Recorded Review of Systems Includes: Review of Systems from this encounter Musculoskeletal: Pain localized to one or more joints. Mental Status Includes: Mental Status from this encounter No Mental Status Recorded Functional Status Includes: Functional Status from this encounter No Functional Status Recorded Physical Exam Includes: Physical Exam from this encounter Allergies Includes: Active Allergies No Known Allergies Encounters Encounter Provider Location Date Check-In Time Check- Out Time Diagnosis WALK-IN CLINIC SICK VISIT [facility] [employer] 9 12:00PM 12:35PM Insurance Includes: Active Insurance Policies Plan Name Member ID Group # Subscriber Relationship Effect bharath Dates 1 - MEDICARE PART A CLAIMS/NGS [id number] KAYCEE A COPE Self 2 - [employer] MEDICARE SUPPLEMENT INS [id number] KAYCEE A COPE Self Clinical Notes Includes: Clinical Notes from this encounter No Clinical Notes Recorded
[2024-12-26] MEDS: ACETAMINOPHEN 500 MG TABLET 1000 MG PO (09:00)
[2024-12-26] MEDS: TRANEXAMIC ACID 1,000MG/ISO100 1,000 MG/100 ML BAG 200 MG IVPB (09:00)
[2024-12-26] MEDS: LACTATED RINGERS 1,000 ML 30 ML IV CONT (09:00)
--- NOTE | 2024-12-26 09:11 | WPDHPUPDATE1 ---
History and Physical Update Update Date/Time: 12/26/24 09:11 History and Physical has been reviewed, including an updated exam of the patient. There are NO changes in the patient's condition. Risks, benefits, and alternatives have been discussed and questions answered. Patient agrees to proceed with procedure.
--- NOTE | 2024-12-26 09:15 | P.PNAN_ITS ---
Anes - Initial Pre Proc Eval Procedure: Operation Date: 12/26/24 10:00 Proposed Procedures p Right Total Hip Arthroplasty - Marko Harrell MD Date/Time: 12/26/24 09:15 Surgeon: Marko Harrell MD Pre Op Diagnosis: primary oa right hip Patient Data Age: 84 Gender: F Height: 1.47 m Weight: 65.4 kg Last Vital Signs Temp 36.7 C 12/03/24 08:19 Pulse 70 12/03/24 08:19 Resp 16 12/03/24 08:19 BP 152/61 H 12/03/24 08:19 Pulse Ox 99 12/03/24 08:19 O2 Del Method Room Air 12/03/24 08:19 Allergies Allergy/AdvReac Type Severity Reaction Status Date / Time No Known Allergies Allergy Verified 12/23/24 11:35 Home Medications ?Medication ?Instructions ?Recorded ?Confirmed ?Type Lactobacillus acidophilus 10 100 mmu cells PO DAILY 12/03/24 12/24/24 History billion cell capsule (Probiotic) cannabidiol 100 mg/mL oral solution 150 mg PO DAILY 12/03/24 12/24/24 History loperamide 2 mg capsule (Imodium 4 mg PO DAILY 12/03/24 12/24/24 History A-D) naproxen 250 mg tablet 250 mg PO DAILY PRN pain 12/03/24 12/24/24 History Patient hx anesthesia problems: none Family hx anesthesia problems: none Results Review: All pre-operative results and documents have been reviewed as part of the pre- operative evaluation. [facility] Surgical History Surgical History History of eye surgery (~02/16/09) Macular hole- Right eye History of eye surgery (~04/03/06) Macular hole- right eye History of right cataract extraction (~07/24/03) History of left cataract extraction (~12/25/08) Social History Social History Smoking packs per day: 1 Smoking cigarettes per day: 20.0 Years smoked: 30 Smoking pack-years: 30.00 Smoking status: Former smoker Tobacco type: cigarettes Smoking end date: 05/20/95 Alcohol intake: current Do You Feel Safe in your Home?: Yes Lack of Transportation: No Lack of Food: Never True Current Housing: I Have Housing Concerned About Future Housing: No Difficulty Paying Gas/Electric Bills: No Difficulty Paying for Meds: No Currently Unemployed: No Education: High School Diploma/GED Difficulty w/ Childcare or Family Care: No Living arrangements: alone Spiritual care concerns: No Anes - Eval Final PreProcedure Day of Procedure 12/26/24 09:15 Patient weight: obese Heart: regular rate and rhythm Lungs: clear to auscultation Airway: Mallampati scale class II Neurological: alert and oriented Last oral intake: >/= 8 hours ASA classification: III Emergent: no Anesthetic plan: proceed Anesthesia type and monitoring: general ETT and standard monitoring Results Review: All pre-operative results and documents have been reviewed as part of the pre- operative evaluation. Informed Consent: The patient's anesthetic plan and its attendant risks and benefits were discussed with the patient/family/POA. Questions were solicited and answers provided to the satisfaction of the patient/family/POA.
[2024-12-26] MEDS: ceFAZolin 2 GM/D5W 50 ML 2 GM/50 ML BAG IVPB ×2 (10:18→18:41)
[2024-12-26] MEDS: SODIUM CHLORIDE 0.9% IV 37.7 ML, MORPHINE SULFATE INJ (*CRX) 2 MG, ROPivacaine HCL 1% 2... INFILTRATE (10:52)
[2024-12-26] MEDS: SODIUM CHLORIDE 0.9% IV 1,000 ML 125 ML IV CONT (13:40)
--- NOTE | 2024-12-26 13:40 | ADMGEN ---
This patient, Anh Kennedy, was admitted to [facility]. Patient/family oriented to hospital policies and general routines including ID bracelet, bed and alarms, visiting hours, pain management, procedures, bathroom and other care routines, personal items, smoking policy, room service/diet, and visiting hours. Information on how to activate the Rapid Response Team has been discussed. Patient/Family are encouraged to report perceived risks to care and to ask questions if they do not understand what they are told or what they should do. Patient is currently in Pre-op Room 11. Patient will be transported to room as soon as availability allows. Family at bedside at this time.
--- NOTE | 2024-12-26 15:06 | W.PM.PROC2 ---
Procedure Note - Detailed Date of Procedure 12/26/24 Pre-op Diagnosis Right hip degenerative arthritis. Post-op Diagnosis Same Procedure Performed Right Total Hip Arthroplasty Surgeon Marko Harrell MD Sales Property Manager Denisse Quijano PA-C Anesthesia General Findings Small stature. Good bone quality. Description of Procedure The patient was given preoperative antibiotics. A general anesthetic was administered. The patient was carefully placed in the lateral decubitus position on the PEG board. The shoulders and hips were carefully positioned for component and leg length positioning reference. The hip was prepped and draped in the usual sterile fashion. A longitudinal incision was created over the posterior aspect of the greater trochanter. Careful dissection was brought down through the deep fascia with electrocautery. A minimally invasive optimized posterior approach to the hip was performed. The short external rotators and capsule were taken down in an L-shaped capsulotomy. The tissue was tagged for later repair using number 2 high strength suture. The femoral neck was measured and taken in situ. The femoral head was removed. The acetabulum was carefully exposed. The inferior capsule was released. The labrum was resected. The acetabulum was sequentially reamed to the intended cup size. The cup was impacted into position with excellent press-fit. Typical anatomic landmarks, including the bony contact points as well as the inferior transverse acetabular ligament were used to confirm cup positioning with preoperative templating. Attention was turned to the femur, which was carefully exposed. The hip was reamed and then broached sequentially. Excellent press-fit was obtained with the broach. The hip was trialed. Measurements were utilized, including the lesser trochanter as well as the center of the femoral head and the tip of the trochanter, and excellent assessment of the offset and leg lengths were confirmed. The real component was impacted into position. Trialing confirmed appropriate leg length and offset with soft tissue balancing as well apparent feel of the leg, both at the knee and the heel. Soft tissues were assessed using the the iliotibial band. Reduction of the posterior capsule and external rotators were also used as a secondary assessment. The hip was copiously irrigated with pulsatile lavage periodically throughout the procedure. The real components were then assembled and reduced. The hip was stable throughout typical maneuvers, including extension, external rotation to 70 degrees, the position of sleep as well as flexion to 90 degrees with internal rotation past 30 degrees. The shake test confirmed stability without impingement. Osteophytes were removed as necessary. The short external rotators and capsule were repaired back to the posterior trochanter through drill holes. The deep fascia was repaired with running number 2 barbed suture, followed by 2-0 Stratafix suture and 3-0 Stratafix suture in the dermis. Steri-Strips were placed on the skin, followed by a sterile occlusive dressing. There were no complications. Meticulous hemostasis was maintained with the AquaMantys device. The patient was brought to the recovery room in stable condition. There were no complications. Physician photo studio assistant, Denisse Quijano PA-C, required for surgery; including patient positioning, draping, tissue retraction, maintaining instrument position, hip dislocation/ relocation, wound closure, and dressing placement. Implants The Accolade II hip stem, 127 degree size 2 , was utilized with excellent press-fit. The 46 mm Trident II acetabular component was impacted with excellent press-fit stability. Standard polyethylene liner the +0, 32 mm Biolox ceramic femoral head was utilized. Estimated Blood Loss 300 Drains No Packing No Pathology None sent Complications No immediate complications Condition Stable Disposition PACU [facility] Billing Surgery - Charge Forward: Surgery Billing
--- NOTE | 2024-12-26 15:50 | PC.NURSE ---
Patient transported to [facility] Room 316-02 by stretcher with family at bedside.
[2024-12-26] MEDS: ACETAMINOPHEN 325 MG TABLET 650 MG PO (16:49)
--- NOTE | 2024-12-26 16:55 | PC.NURSE ---
This patient, Anh Kennedy, was received from OR on 12/26/24 at 1555. Patient/family oriented to unit policies and routines
--- NOTE | 2024-12-26 18:14 | WPDANESPN ---
Anes - Prog Note Post-Op Date/Time: 12/26/24 18:14 Cardiovascular status: normal Respiratory status: normal Airway patency: baseline Mental status: baseline Post-Op hydration status: normal Vital Signs: Last Vital Signs Temp 36.3 C L 12/26/24 16:37 Pulse 108 H 12/26/24 16:37 Resp 17 12/26/24 16:37 BP 148/82 H 12/26/24 16:37 Pulse Ox 98 12/26/24 16:37 O2 Del Method Room Air 12/26/24 15:30 O2 Flow Rate 6 12/26/24 12:40 Pain Score (VAS): 3/10 I/O: Intake & Output 12/26/24 12/26/24 12/26/24 07:59 15:59 23:59 Intake Total 450 Balance 450 12/26/24 08:45 Blood Type O Positive Antibody Screen Negative Post-procedural complaints: none Patient Feedback: Patient satisfied with anesthetic care.
[2024-12-26] MEDS: SENNA/DOCUSATE SODIUM TABLET 2 TAB PO (18:41)
[2024-12-26] MEDS: FAMOTIDINE 20 MG TABLET PO (21:19)
[2024-12-26] MEDS: ASPIRIN 81 MG ENTERIC TABLET PO (21:19)
[2024-12-27] MEDS: ACETAMINOPHEN 325 MG TABLET 650 MG PO ×3 (00:27→12:37)
[2024-12-27] MEDS: ceFAZolin 2 GM/D5W 50 ML 2 GM/50 ML BAG IVPB ×2 (01:58→11:22)
[2024-12-27] MEDS: oxyCODONE/ACETAMINOPHEN (*CRX) 5-325 MG TABLET 1 TABLET PO ×2 (02:40→11:20)
[2024-12-27 03:22] VITALS: BP 108/45; PULSE 87; RESP 18; TEMP 36.6; O2SAT 96
[2024-12-27 07:52] LABS: Basophils Absolute Auto 0.1 K/mm3 (0.0-0.1); Basophils Percent Auto 0.4 % (0.2-1.2); Eosinophils Absolute Auto 0.1 K/mm3 (0-0.3); Eosinophils Percent Auto 0.4 % (0-4.4); Hematocrit 33.7 % (37.0-47.0); Hemoglobin 11.6 g/dL (12.0-15.0); Immature Granulocyte Absolute 0.05 K/mm3 (0.00-0.031); Immature Granulocyte Percent A 0.4 % (0-0.5); Lymphocytes Absolute Auto 2.01 K/mm3 (0.9-3.2); Lymphocytes Percent Auto 16.8 % (18.3-44.2); Mean Corpuscular HGB Conc 34.4 g/dl (32-36); Mean Corpuscular Hemoglobin 29.4 pg (26-34); Mean Corpuscular Volume 85.5 fl (80-100); Mean Platelet Volume 8.9 fl (7.4-10.4); Monocytes Absolute Auto 1.1 K/mm3 (0.1-0.6); Monocytes Percent Auto 9.1 % (2.6-8.5); Neutrophils Absolute Auto 8.8 K/mm3 (1.3-6.7); Neutrophils Percent Auto 72.9 % (45.5-73.1); Platelet Count Result 213 k/mm3 (150-375); Red Blood Count 3.94 M/mm3 (4.2-5.4); Red Cell Distribution Width 12.7 % (11.5-14.5)
--- NOTE | 2024-12-27 08:11 | P.PNAN_ITS ---
Anes - Prog Note Post-Op Date/Time: 12/27/24 08:11 Cardiovascular status: normal Respiratory status: normal Airway patency: baseline Mental status: baseline Post-Op hydration status: normal Vital Signs: Last Vital Signs Temp 97.8 F 12/27/24 03:22 Pulse 87 12/27/24 03:22 Resp 18 12/27/24 03:22 BP 108/45 L 12/27/24 03:22 Pulse Ox 96 12/27/24 03:22 O2 Del Method Room Air 12/26/24 15:30 O2 Flow Rate 6 12/26/24 12:40 Pain Score (VAS): 0/10 I/O: Intake & Output 12/26/24 12/27/24 12/27/24 23:59 07:59 15:59 Intake Total 410 Balance 410 Laboratory Tests 12/27/24 07:37 12/26/24 12/27/24 08:45 07:37 WBC 12.0 H RBC 3.94 L Hgb 11.6 L D Hct 33.7 L MCV 85.5 MCH 29.4 MCHC 34.4 RDW 12.7 Plt Count 213 MPV 8.9 Immature Gran % (Auto) 0.4 Neut % (Auto) 72.9 Lymph % (Auto) 16.8 L Cassia % (Auto) 9.1 H Eos % (Auto) 0.4 Baso % (Auto) 0.4 Lymph # (Auto) 2.01 Cassia # (Auto) 1.1 H Eos # (Auto) 0.1 Baso # (Auto) 0.1 Abs Immat Gran (auto) 0.05 H Absolute Neuts (auto) 8.8 H Absolute Nucleated RBC 0.000 Nucleated RBC % 0.0 Sodium Pending Potassium Pending Chloride Pending Carbon Dioxide Pending Anion Gap Pending BUN Pending Creatinine Pending Estim Creat Clear Calc Pending Estimated GFR Pending Glucose Pending Calcium Pending Blood Type O Positive Antibody Screen Negative Post-procedural complaints: none Patient Feedback: Patient satisfied with anesthetic care.
[2024-12-27 08:20] LABS: Anion Gap 6 mmol/L (4-12); Blood Urea Nitrogen 15 mg/dL (7-17); Calcium 8.7 mg/dL (8.4-10.2); Carbon Dioxide 26 mmol/L (22-30); Chloride 104 mmol/L (98-107); Estimated Glomerular Filt Rate > 60; Glucose 137 mg/dL (65-110); Potassium 3.7 mmol/L (3.4-5.0); Sodium 136 mmol/L (137-145)
[2024-12-27] MEDS: FAMOTIDINE 20 MG TABLET PO (11:22)
[2024-12-27] MEDS: ASPIRIN 81 MG ENTERIC TABLET PO (11:22)
== END 2024-12-27 13:10 | disposition home or self-care (01) ==
LOC: ANHSURGERY 10:24 → ANHSUROVER 13:50 → ANH3MEDSUR 16:05
PROVIDERS: Physician Assistant Surgical; PCP Family Medicine; Visit Provider Orthopaedic Surgery
PROC: (CPT 27130; principal; 2024-12-26 10:00)
DX: M16.11 Unilateral primary osteoarthritis, right hip (principal); M25.751 Osteophyte, right hip; E66.9 Obesity, unspecified; Z68.29 Body mass index [BMI] 29.0-29.9, adult; Z79.1 Long term (current) use of non-steroidal anti-inflammatories (NSAID); Z98.890 Other specified postprocedural states; Z87.891 Personal history of nicotine dependence
CPT/HCPCS: 27130; 36415; 73502; 80048; 85025; 86850; 86900; 86901; 97110; 97116; 97161; 97166; 97530; 97535; A9270; C1776; J0171; J0690; J1100; J1171; J1885; J2003; J2270; J2371; J2405; J2704; J2795; J3010; J7030; J7120